=== PATIENT | male | born 1955 | race Caucasian/White ===

== ENCOUNTER 2023-02-13 10:34 | Inpatient (IN) ==
[2023-02-13] MEDS ORDERED: MILK OF MAGNESIA PO PRN (11:33)
[2023-02-13 11:41] VITALS: BMI 28.6
[2023-02-13] MEDS: ROXICODONE TAB 5 MG PO PRN (12:53)
[2023-02-13] MEDS: ELIQUIS PO SCH ×2 (13:52→21:03)
[2023-02-13] MEDS: TAB-A-VITE PO SCH (13:53)
[2023-02-13] MEDS: ZESTRIL TAB 10 MG PO SCH (13:53)
[2023-02-13] MEDS: NEURONTIN CAP 300 MG PO SCH ×2 (14:21→21:03)
[2023-02-13] MEDS: ROBAXIN PO SCH ×2 (14:21→21:04)
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
[2023-02-13] MEDS: COLACE CAP 100 MG PO SCH (21:03)
[2023-02-13] MEDS: ZOCOR TAB 20 MG PO SCH (21:03)
[2023-02-14] MEDS: NEURONTIN CAP 300 MG PO SCH ×3 (05:05→21:05)
[2023-02-14] MEDS: ROBAXIN PO SCH ×3 (05:05→21:05)
[2023-02-14 07:16] LABS: BASOPHILS % (AUTO) 0.2 % (0.2-1.0); EOSINOPHILS # (AUTO) 0.1 x10^3/uL (0.0-0.2); EOSINOPHILS % (AUTO) 1.6 % (0.9-2.9); HEMATOCRIT 31.1 % (42.0-54.0); HEMOGLOBIN 11.1 g/dL (13.5-18.0); LYMPHOCYTES # (AUTO) 0.7 X10^3/uL (1.3-2.9); LYMPHOCYTES % (AUTO) 11.6 % (21.0-51.0); MEAN CORPUSCULAR HEMOGLOBIN 32.7 pg (27.0-34.0); MEAN CORPUSCULAR HGB CONC 35.7 g/dL (33.0-35.0); MEAN CORPUSCULAR VOLUME 91.6 fL (80.0-100.0); MEAN PLATELET VOLUME 6.8 fL (7.4-11.0); MONOCYTES # (AUTO) 0.4 x10^3/uL (0.3-0.8); MONOCYTES % (AUTO) 7.9 % (0.0-13.0); NEUTROPHILS # (AUTO) 4.4 x10^3/uL (2.2-4.8); NEUTROPHILS % (AUTO) 78.7 % (42.0-75.0); PLATELET COUNT 165 X10^3/uL (150.0-450.0); RED CELL DISTRIBUTION WIDTH 12.6 % (11.6-16.5); WHITE BLOOD COUNT 5.6 X10^3/uL (3.6-10.0)
[2023-02-14 07:26] LABS: ALANINE AMINOTRANSFERASE 29 Units/L (12-78); ALBUMIN 2.8 g/dL (3.4-5.0); ALKALINE PHOSPHATASE 70 Units/L (46-116); ASPARTATE AMINO TRANSFERASE 29 Units/L (15-37); BLOOD UREA NITROGEN 20 mg/dL (7-18); CALCIUM 8.3 mg/dL (8.5-10.1); CARBON DIOXIDE 29.1 mmol/L (21-32); CHLORIDE 103 mmol/L (98-107); COR CA(FOR HYPOALB) 9.3 mg/dL (8.5-10.1); CREATININE 0.83 mg/dL (0.70-1.30); GLUCOSE 100 mg/dL (65-99); POTASSIUM 3.6 mmol/L (3.5-5.1); SODIUM 138 mmol/L (136-145); TOTAL PROTEIN 6.2 g/dL (6.4-8.2); eGFR NON BLACK RACES > 60 (>60)
[2023-02-14] MEDS: TAB-A-VITE PO SCH (09:25)
[2023-02-14] MEDS: ELIQUIS PO SCH ×2 (09:25→21:05)
[2023-02-14] MEDS: ZESTRIL TAB 10 MG PO SCH (09:25)
[2023-02-14] MEDS: ROXICODONE TAB 5 MG PO PRN (15:16)
[2023-02-14] MEDS ORDERED: CONSULT PHARMACY - POTASSIUM & MAGNESIUM XX SCH (21:00)
[2023-02-14] MEDS ORDERED: K-DUR TAB 20 MEQ PO ONE (21:00)
[2023-02-14] MEDS: COLACE CAP 100 MG PO SCH (21:06)
[2023-02-14] MEDS: ZOCOR TAB 20 MG PO SCH (21:06)
[2023-02-14] MEDS: MAG-OX TAB PO SCH ×2 (21:58→23:30)
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
[2023-02-15] MEDS: NEURONTIN CAP 300 MG PO SCH ×3 (05:25→21:32)
[2023-02-15] MEDS: ROBAXIN PO SCH ×3 (05:26→21:34)
[2023-02-15 06:27] LABS: POTASSIUM 3.8 mmol/L (3.5-5.1)
[2023-02-15] MEDS ORDERED: CONSULT PHARMACY - POTASSIUM & MAGNESIUM XX SCH (07:00)
[2023-02-15] MEDS ORDERED: K-DUR TAB 20 MEQ PO SCH (09:00)
[2023-02-15] MEDS: ELIQUIS PO SCH ×2 (09:01→21:32)
[2023-02-15] MEDS: ZESTRIL TAB 10 MG PO SCH (09:01)
[2023-02-15] MEDS: TAB-A-VITE PO SCH (09:02)
[2023-02-15] MEDS: COLACE CAP 100 MG PO SCH (21:32)
[2023-02-15] MEDS: ZOCOR TAB 20 MG PO SCH (21:32)
[2023-02-16] MEDS: ROBAXIN PO SCH ×3 (05:22→21:30)
[2023-02-16] MEDS: NEURONTIN CAP 300 MG PO SCH ×3 (05:22→20:59)
[2023-02-16 06:17] LABS: BASOPHILS % (AUTO) 0.2 % (0.2-1.0); EOSINOPHILS # (AUTO) 0.1 x10^3/uL (0.0-0.2); EOSINOPHILS % (AUTO) 1.6 % (0.9-2.9); HEMATOCRIT 30.2 % (42.0-54.0); HEMOGLOBIN 10.8 g/dL (13.5-18.0); LYMPHOCYTES # (AUTO) 0.6 X10^3/uL (1.3-2.9); LYMPHOCYTES % (AUTO) 9.4 % (21.0-51.0); MEAN CORPUSCULAR HEMOGLOBIN 32.7 pg (27.0-34.0); MEAN CORPUSCULAR HGB CONC 35.7 g/dL (33.0-35.0); MEAN CORPUSCULAR VOLUME 91.5 fL (80.0-100.0); MEAN PLATELET VOLUME 6.6 fL (7.4-11.0); MONOCYTES # (AUTO) 0.4 x10^3/uL (0.3-0.8); MONOCYTES % (AUTO) 6.6 % (0.0-13.0); NEUTROPHILS # (AUTO) 5.5 x10^3/uL (2.2-4.8); NEUTROPHILS % (AUTO) 82.2 % (42.0-75.0); PLATELET COUNT 216 X10^3/uL (150.0-450.0); RED CELL DISTRIBUTION WIDTH 12.6 % (11.6-16.5); WHITE BLOOD COUNT 6.7 X10^3/uL (3.6-10.0)
[2023-02-16 06:29] LABS: ALANINE AMINOTRANSFERASE 37 Units/L (12-78); ALBUMIN 2.5 g/dL (3.4-5.0); ALKALINE PHOSPHATASE 68 Units/L (46-116); ASPARTATE AMINO TRANSFERASE 22 Units/L (15-37); BLOOD UREA NITROGEN 21 mg/dL (7-18); CALCIUM 8.2 mg/dL (8.5-10.1); CARBON DIOXIDE 26.1 mmol/L (21-32); CHLORIDE 103 mmol/L (98-107); COR CA(FOR HYPOALB) 9.4 mg/dL (8.5-10.1); COR NA(FOR HYPERGLY) 137 mmol/L (136-145); CREATININE 0.93 mg/dL (0.70-1.30); GLUCOSE 146 mg/dL (65-99); POTASSIUM 3.7 mmol/L (3.5-5.1); SODIUM 136 mmol/L (136-145); TOTAL PROTEIN 6.1 g/dL (6.4-8.2); eGFR NON BLACK RACES > 60 (>60)
[2023-02-16] MEDS ORDERED: CONSULT PHARMACY - POTASSIUM & MAGNESIUM XX SCH ×2 (07:00→10:00)
[2023-02-16] MEDS: K-DUR TAB 20 MEQ PO SCH ×2 (09:05→20:58)
[2023-02-16] MEDS: ELIQUIS PO SCH ×2 (09:05→20:57)
[2023-02-16] MEDS: ZESTRIL TAB 10 MG PO SCH (09:05)
[2023-02-16] MEDS: TAB-A-VITE PO SCH (09:05)
[2023-02-16] MEDS: ROXICODONE TAB 5 MG PO PRN (09:24)
[2023-02-16] MEDS: ULTRAM PO SCH ×2 (15:06→20:59)
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
[2023-02-16] MEDS: COLACE CAP 100 MG PO SCH (20:59)
[2023-02-16] MEDS: ZOCOR TAB 20 MG PO SCH (21:02)
[2023-02-17] MEDS: ULTRAM PO SCH ×4 (02:08→20:51)
[2023-02-17] MEDS: NEURONTIN CAP 300 MG PO SCH ×3 (05:20→21:00)
[2023-02-17] MEDS: ROBAXIN PO SCH ×3 (05:21→21:00)
[2023-02-17] MEDS: TAB-A-VITE PO SCH (08:53)
[2023-02-17] MEDS: K-DUR TAB 20 MEQ PO SCH ×2 (08:53→20:50)
[2023-02-17] MEDS: ELIQUIS PO SCH ×2 (08:53→20:50)
[2023-02-17] MEDS: ZESTRIL TAB 10 MG PO SCH (08:54)
[2023-02-17] MEDS: ROXICODONE TAB 5 MG PO PRN (13:28)
[2023-02-17] MEDS: COLACE CAP 100 MG PO SCH (20:50)
[2023-02-17] MEDS: ZOCOR TAB 20 MG PO SCH (20:51)
[2023-02-18] MEDS: ULTRAM PO SCH ×4 (05:13→21:08)
[2023-02-18] MEDS: ROBAXIN PO SCH ×3 (05:14→21:09)
[2023-02-18] MEDS: NEURONTIN CAP 300 MG PO SCH ×3 (05:14→21:08)
[2023-02-18 06:21] LABS: BASOPHILS % (AUTO) 0.6 % (0.2-1.0); EOSINOPHILS # (AUTO) 0.2 x10^3/uL (0.0-0.2); HEMOGLOBIN 10.9 g/dL (13.5-18.0); LYMPHOCYTES # (AUTO) 0.8 X10^3/uL (1.3-2.9); LYMPHOCYTES % (AUTO) 14.4 % (21.0-51.0); MEAN CORPUSCULAR HEMOGLOBIN 32.7 pg (27.0-34.0); MEAN CORPUSCULAR HGB CONC 35.3 g/dL (33.0-35.0); MEAN CORPUSCULAR VOLUME 92.4 fL (80.0-100.0); MEAN PLATELET VOLUME 6.9 fL (7.4-11.0); MONOCYTES # (AUTO) 0.4 x10^3/uL (0.3-0.8); MONOCYTES % (AUTO) 7.3 % (0.0-13.0); NEUTROPHILS # (AUTO) 4.2 x10^3/uL (2.2-4.8); NEUTROPHILS % (AUTO) 74.7 % (42.0-75.0); PLATELET COUNT 275 X10^3/uL (150.0-450.0); RED BLOOD COUNT 3.35 X10^6/uL (4.7-6.0); RED CELL DISTRIBUTION WIDTH 13.3 % (11.6-16.5); WHITE BLOOD COUNT 5.6 X10^3/uL (3.6-10.0)
[2023-02-18 06:35] LABS: ALANINE AMINOTRANSFERASE 35 Units/L (12-78); ALBUMIN 2.6 g/dL (3.4-5.0); ALKALINE PHOSPHATASE 86 Units/L (46-116); ASPARTATE AMINO TRANSFERASE 20 Units/L (15-37); BLOOD UREA NITROGEN 23 mg/dL (7-18); CALCIUM 8.4 mg/dL (8.5-10.1); CARBON DIOXIDE 29.8 mmol/L (21-32); CHLORIDE 102 mmol/L (98-107); COR CA(FOR HYPOALB) 9.5 mg/dL (8.5-10.1); CREATININE 0.88 mg/dL (0.70-1.30); GLUCOSE 95 mg/dL (65-99); POTASSIUM 4.3 mmol/L (3.5-5.1); SODIUM 136 mmol/L (136-145); TOTAL PROTEIN 6.3 g/dL (6.4-8.2); eGFR NON BLACK RACES > 60 (>60)
[2023-02-18] MEDS: ELIQUIS PO SCH ×2 (08:26→21:08)
[2023-02-18] MEDS: ZESTRIL TAB 10 MG PO SCH (08:27)
[2023-02-18] MEDS: TAB-A-VITE PO SCH (08:27)
[2023-02-18] MEDS: K-DUR TAB 20 MEQ PO SCH ×2 (08:27→21:08)
[2023-02-18] MEDS: ROXICODONE TAB 5 MG PO PRN (09:10)
[2023-02-18] MEDS: ZOCOR TAB 20 MG PO SCH (21:08)
[2023-02-18] MEDS: COLACE CAP 100 MG PO SCH (21:08)
[2023-02-19] MEDS: ULTRAM PO SCH ×4 (02:17→20:35)
[2023-02-19] MEDS: NEURONTIN CAP 300 MG PO SCH ×3 (05:03→21:33)
[2023-02-19] MEDS: ROBAXIN PO SCH ×3 (05:04→21:33)
[2023-02-19 06:19] LABS: BASOPHILS % (AUTO) 0.9 % (0.2-1.0); EOSINOPHILS # (AUTO) 0.2 x10^3/uL (0.0-0.2); EOSINOPHILS % (AUTO) 3.3 % (0.9-2.9); HEMATOCRIT 32.1 % (42.0-54.0); HEMOGLOBIN 11.3 g/dL (13.5-18.0); LYMPHOCYTES # (AUTO) 0.7 X10^3/uL (1.3-2.9); LYMPHOCYTES % (AUTO) 15.9 % (21.0-51.0); MEAN CORPUSCULAR HEMOGLOBIN 32.3 pg (27.0-34.0); MEAN CORPUSCULAR HGB CONC 35.1 g/dL (33.0-35.0); MEAN PLATELET VOLUME 6.8 fL (7.4-11.0); MONOCYTES # (AUTO) 0.4 x10^3/uL (0.3-0.8); MONOCYTES % (AUTO) 8.2 % (0.0-13.0); NEUTROPHILS # (AUTO) 3.4 x10^3/uL (2.2-4.8); NEUTROPHILS % (AUTO) 71.7 % (42.0-75.0); PLATELET COUNT 349 X10^3/uL (150.0-450.0); RED BLOOD COUNT 3.49 X10^6/uL (4.7-6.0); RED CELL DISTRIBUTION WIDTH 12.9 % (11.6-16.5); WHITE BLOOD COUNT 4.7 X10^3/uL (3.6-10.0)
[2023-02-19 06:48] LABS: ALANINE AMINOTRANSFERASE 35 Units/L (12-78); ALBUMIN 2.7 g/dL (3.4-5.0); ALKALINE PHOSPHATASE 103 Units/L (46-116); ASPARTATE AMINO TRANSFERASE 19 Units/L (15-37); BLOOD UREA NITROGEN 22 mg/dL (7-18); CALCIUM 8.5 mg/dL (8.5-10.1); CARBON DIOXIDE 28.5 mmol/L (21-32); CHLORIDE 98 mmol/L (98-107); COR CA(FOR HYPOALB) 9.5 mg/dL (8.5-10.1); CREATININE 0.89 mg/dL (0.70-1.30); GLUCOSE 92 mg/dL (65-99); SODIUM 133 mmol/L (136-145); TOTAL PROTEIN 6.7 g/dL (6.4-8.2); eGFR NON BLACK RACES > 60 (>60)
[2023-02-19] MEDS: ELIQUIS PO SCH ×2 (08:46→20:34)
[2023-02-19] MEDS: ZESTRIL TAB 10 MG PO SCH (08:47)
[2023-02-19] MEDS: K-DUR TAB 20 MEQ PO SCH ×2 (08:48→20:34)
[2023-02-19] MEDS: TAB-A-VITE PO SCH (08:49)
[2023-02-19] MEDS: ROXICODONE TAB 5 MG PO PRN (09:40)
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
[2023-02-19] MEDS: COLACE CAP 100 MG PO SCH (20:34)
[2023-02-19] MEDS: ZOCOR TAB 20 MG PO SCH (20:34)
[2023-02-20] MEDS: ULTRAM PO SCH ×4 (03:03→20:27)
[2023-02-20] MEDS: ROBAXIN PO SCH ×3 (05:30→21:25)
[2023-02-20] MEDS: NEURONTIN CAP 300 MG PO SCH ×3 (05:30→21:25)
[2023-02-20 06:29] LABS: BASOPHILS % (AUTO) 0.7 % (0.2-1.0); EOSINOPHILS # (AUTO) 0.2 x10^3/uL (0.0-0.2); EOSINOPHILS % (AUTO) 4.5 % (0.9-2.9); HEMATOCRIT 31.5 % (42.0-54.0); HEMOGLOBIN 11.3 g/dL (13.5-18.0); LYMPHOCYTES # (AUTO) 0.6 X10^3/uL (1.3-2.9); LYMPHOCYTES % (AUTO) 14.9 % (21.0-51.0); MEAN CORPUSCULAR HEMOGLOBIN 32.7 pg (27.0-34.0); MEAN CORPUSCULAR HGB CONC 35.8 g/dL (33.0-35.0); MEAN CORPUSCULAR VOLUME 91.2 fL (80.0-100.0); MONOCYTES # (AUTO) 0.4 x10^3/uL (0.3-0.8); NEUTROPHILS # (AUTO) 2.8 x10^3/uL (2.2-4.8); NEUTROPHILS % (AUTO) 69.9 % (42.0-75.0); PLATELET COUNT 372 X10^3/uL (150.0-450.0); RED BLOOD COUNT 3.46 X10^6/uL (4.7-6.0); WHITE BLOOD COUNT 3.9 X10^3/uL (3.6-10.0)
[2023-02-20 06:44] LABS: ALANINE AMINOTRANSFERASE 29 Units/L (12-78); ALBUMIN 2.7 g/dL (3.4-5.0); ALKALINE PHOSPHATASE 117 Units/L (46-116); ASPARTATE AMINO TRANSFERASE 19 Units/L (15-37); BLOOD UREA NITROGEN 21 mg/dL (7-18); CALCIUM 8.6 mg/dL (8.5-10.1); CARBON DIOXIDE 29.8 mmol/L (21-32); CHLORIDE 98 mmol/L (98-107); COR CA(FOR HYPOALB) 9.6 mg/dL (8.5-10.1); CREATININE 0.88 mg/dL (0.70-1.30); GLUCOSE 90 mg/dL (65-99); POTASSIUM 4.3 mmol/L (3.5-5.1); SODIUM 133 mmol/L (136-145); TOTAL PROTEIN 6.7 g/dL (6.4-8.2); eGFR NON BLACK RACES > 60 (>60)
[2023-02-20] MEDS: ELIQUIS PO SCH ×2 (09:29→20:26)
[2023-02-20] MEDS: ZESTRIL TAB 10 MG PO SCH (09:30)
[2023-02-20] MEDS: K-DUR TAB 20 MEQ PO SCH ×2 (09:30→20:26)
[2023-02-20] MEDS: ROXICODONE TAB 5 MG PO PRN (09:31)
[2023-02-20] MEDS: TAB-A-VITE PO SCH (09:31)
[2023-02-20] MEDS: COLACE CAP 100 MG PO SCH (20:26)
[2023-02-20] MEDS: ZOCOR TAB 20 MG PO SCH (20:27)
[2023-02-21] MEDS: ULTRAM PO SCH ×4 (03:06→20:11)
[2023-02-21] MEDS: ROBAXIN PO SCH ×3 (05:37→21:02)
[2023-02-21] MEDS: NEURONTIN CAP 300 MG PO SCH ×3 (05:37→21:02)
[2023-02-21] MEDS: ELIQUIS PO SCH ×2 (08:37→20:09)
[2023-02-21] MEDS: ZESTRIL TAB 10 MG PO SCH (08:37)
[2023-02-21] MEDS: TAB-A-VITE PO SCH (08:37)
[2023-02-21] MEDS: ROXICODONE TAB 5 MG PO PRN (10:08)
[2023-02-21] MEDS: COLACE CAP 100 MG PO SCH (20:09)
[2023-02-21] MEDS: ZOCOR TAB 20 MG PO SCH (20:09)
[2023-02-21] MEDS: K-DUR TAB 20 MEQ PO SCH (20:09)
[2023-02-22] MEDS: ULTRAM PO SCH ×4 (02:10→20:08)
[2023-02-22] MEDS: ROBAXIN PO SCH ×3 (05:27→21:08)
[2023-02-22] MEDS: NEURONTIN CAP 300 MG PO SCH ×3 (05:27→21:08)
[2023-02-22] MEDS: TAB-A-VITE PO SCH (08:39)
[2023-02-22] MEDS: ZESTRIL TAB 10 MG PO SCH (08:39)
[2023-02-22] MEDS: ELIQUIS PO SCH ×2 (08:39→20:08)
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
[2023-02-22] MEDS: ZOCOR TAB 20 MG PO SCH (20:07)
[2023-02-22] MEDS: COLACE CAP 100 MG PO SCH (20:07)
[2023-02-22] MEDS: K-DUR TAB 20 MEQ PO SCH (20:09)
[2023-02-23] MEDS: ULTRAM PO SCH ×4 (03:15→20:10)
[2023-02-23] MEDS: ROBAXIN PO SCH (05:05)
[2023-02-23] MEDS: NEURONTIN CAP 300 MG PO SCH ×3 (05:05→21:28)
[2023-02-23 05:12] LABS: BASOPHILS % (AUTO) 0.8 % (0.2-1.0); EOSINOPHILS # (AUTO) 0.2 x10^3/uL (0.0-0.2); EOSINOPHILS % (AUTO) 4.7 % (0.9-2.9); HEMATOCRIT 32.7 % (42.0-54.0); HEMOGLOBIN 11.3 g/dL (13.5-18.0); LYMPHOCYTES # (AUTO) 1.1 X10^3/uL (1.3-2.9); LYMPHOCYTES % (AUTO) 28.5 % (21.0-51.0); MEAN CORPUSCULAR HEMOGLOBIN 31.7 pg (27.0-34.0); MEAN CORPUSCULAR HGB CONC 34.6 g/dL (33.0-35.0); MEAN CORPUSCULAR VOLUME 91.6 fL (80.0-100.0); MEAN PLATELET VOLUME 6.4 fL (7.4-11.0); MONOCYTES # (AUTO) 0.4 x10^3/uL (0.3-0.8); MONOCYTES % (AUTO) 9.3 % (0.0-13.0); NEUTROPHILS # (AUTO) 2.3 x10^3/uL (2.2-4.8); NEUTROPHILS % (AUTO) 56.7 % (42.0-75.0); PLATELET COUNT 467 X10^3/uL (150.0-450.0); RED BLOOD COUNT 3.57 X10^6/uL (4.7-6.0); RED CELL DISTRIBUTION WIDTH 13.1 % (11.6-16.5)
[2023-02-23 05:27] LABS: ALANINE AMINOTRANSFERASE 26 Units/L (12-78); ALBUMIN 2.7 g/dL (3.4-5.0); ALKALINE PHOSPHATASE 163 Units/L (46-116); ASPARTATE AMINO TRANSFERASE 15 Units/L (15-37); BLOOD UREA NITROGEN 22 mg/dL (7-18); CALCIUM 8.6 mg/dL (8.5-10.1); CARBON DIOXIDE 30.4 mmol/L (21-32); CHLORIDE 100 mmol/L (98-107); COR CA(FOR HYPOALB) 9.6 mg/dL (8.5-10.1); CREATININE 1.04 mg/dL (0.70-1.30); GLUCOSE 86 mg/dL (65-99); POTASSIUM 4.5 mmol/L (3.5-5.1); SODIUM 138 mmol/L (136-145); TOTAL PROTEIN 6.6 g/dL (6.4-8.2); eGFR NON BLACK RACES > 60 (>60)
[2023-02-23] MEDS: ELIQUIS PO SCH ×2 (09:06→20:09)
[2023-02-23] MEDS: ROXICODONE TAB 5 MG PO PRN (09:06)
[2023-02-23] MEDS: TAB-A-VITE PO SCH (09:07)
[2023-02-23] MEDS: ZESTRIL TAB 10 MG PO SCH (09:07)
[2023-02-23] MEDS: COLACE CAP 100 MG PO SCH (20:09)
[2023-02-23] MEDS: ZOCOR TAB 20 MG PO SCH (20:09)
[2023-02-23] MEDS: K-DUR TAB 20 MEQ PO SCH (20:09)
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
[2023-02-24] MEDS: ULTRAM PO SCH ×4 (02:41→20:15)
[2023-02-24] MEDS: NEURONTIN CAP 300 MG PO SCH ×3 (05:16→21:54)
[2023-02-24] MEDS: ZESTRIL TAB 10 MG PO SCH (08:38)
[2023-02-24] MEDS: TAB-A-VITE PO SCH (08:39)
[2023-02-24] MEDS: ELIQUIS PO SCH ×2 (08:39→20:16)
[2023-02-24] MEDS: ROXICODONE TAB 5 MG PO PRN (09:23)
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
[2023-02-24] MEDS: K-DUR TAB 20 MEQ PO SCH (20:15)
[2023-02-24] MEDS: COLACE CAP 100 MG PO SCH (20:15)
[2023-02-24] MEDS: ZOCOR TAB 20 MG PO SCH (20:16)
[2023-02-25] MEDS: ULTRAM PO SCH ×4 (02:07→21:16)
[2023-02-25] MEDS: NEURONTIN CAP 300 MG PO SCH ×3 (05:21→21:10)
[2023-02-25] MEDS: TAB-A-VITE PO SCH (08:33)
[2023-02-25] MEDS: ZESTRIL TAB 10 MG PO SCH (08:34)
[2023-02-25] MEDS: ELIQUIS PO SCH ×2 (08:34→21:14)
[2023-02-25] MEDS: ROXICODONE TAB 5 MG PO PRN (08:39)
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
[2023-02-25] MEDS: COLACE CAP 100 MG PO SCH (21:14)
[2023-02-25] MEDS: K-DUR TAB 20 MEQ PO SCH (21:15)
[2023-02-25] MEDS: ZOCOR TAB 20 MG PO SCH (21:17)
[2023-02-26] MEDS: ULTRAM PO SCH ×4 (02:45→21:17)
[2023-02-26] MEDS: NEURONTIN CAP 300 MG PO SCH ×3 (06:02→21:17)
[2023-02-26] MEDS: ZESTRIL TAB 10 MG PO SCH (09:04)
[2023-02-26] MEDS: ELIQUIS PO SCH ×2 (09:04→21:17)
[2023-02-26] MEDS: TAB-A-VITE PO SCH (09:04)
[2023-02-26] MEDS: ROXICODONE TAB 5 MG PO PRN (09:49)
--- NOTE | 2023-02-26 15:04 | DR.CONSULT ---
CONSULT Consultation for Day of: Date: 02/24/23 Chief Complaint Chief Complaint: Left shoulder pain Allergies Allergies Allergy/AdvReac Type Severity Reaction Status Date / Time No Known Allergies Allergy Verified 02/13/23 11:51 Medications Home Medications: No Known Allergies Allergy (Verified 02/13/23 11:51) CONTINUE taking the following medications lisinopril 10 mg tablet 10 mg PO QDAY 02/13/23 [History] simvastatin 20 mg tablet 20 mg PO QPM 02/13/23 [History] Physical Exam Vital Signs: Vital Signs Temperature 98.0 F Pulse Rate [Apical] 91 Respiratory Rate 20 Respiratory Rate 20 Respiratory Rate 20 Respiratory Rate 20 Respiratory Rate 20 Respiratory Rate 20 Blood Pressure [Right Arm] 131/69 O2 Sat by Pulse Oximetry 95 Plan (1) Pelvis fracture: Status: Acute (2) Hip fracture, right: Status: Acute (3) Fracture of left clavicle: Status: Acute (4) Hypertension: Status: Acute (5) Hyperlipidemia: Status: Acute
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
[2023-02-26] MEDS: K-DUR TAB 20 MEQ PO SCH (21:17)
[2023-02-26] MEDS: COLACE CAP 100 MG PO SCH (21:17)
[2023-02-26] MEDS: ZOCOR TAB 20 MG PO SCH (21:17)
[2023-02-27] MEDS: ULTRAM PO SCH ×4 (04:00→20:31)
[2023-02-27] MEDS: NEURONTIN CAP 300 MG PO SCH ×3 (05:18→21:32)
[2023-02-27] MEDS: TAB-A-VITE PO SCH (08:07)
[2023-02-27] MEDS: ELIQUIS PO SCH ×2 (08:07→20:31)
[2023-02-27] MEDS: ZESTRIL TAB 10 MG PO SCH (08:07)
[2023-02-27] MEDS: ROXICODONE TAB 5 MG PO PRN (09:47)
[2023-02-27] MEDS: ZOCOR TAB 20 MG PO SCH (20:31)
[2023-02-27] MEDS: COLACE CAP 100 MG PO SCH (20:31)
[2023-02-27] MEDS: K-DUR TAB 20 MEQ PO SCH (20:31)
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
[2023-02-28] MEDS: ULTRAM PO SCH ×4 (03:16→20:11)
[2023-02-28] MEDS: NEURONTIN CAP 300 MG PO SCH ×3 (05:44→21:05)
[2023-02-28] MEDS: TAB-A-VITE PO SCH (08:31)
[2023-02-28] MEDS: ZESTRIL TAB 10 MG PO SCH (08:31)
[2023-02-28] MEDS: ELIQUIS PO SCH ×2 (08:31→20:14)
[2023-02-28] MEDS ORDERED: PATIENT'S HOME MEDICATION PO SCH (09:00)
[2023-02-28] MEDS: ZOCOR TAB 20 MG PO SCH (20:11)
[2023-02-28] MEDS: COLACE CAP 100 MG PO SCH (20:11)
[2023-02-28] MEDS: K-DUR TAB 20 MEQ PO SCH (20:11)
[2023-03-01] MEDS: ULTRAM PO SCH ×4 (02:12→20:23)
[2023-03-01] MEDS: NEURONTIN CAP 300 MG PO SCH ×3 (05:16→21:18)
[2023-03-01] MEDS: ELIQUIS PO SCH ×2 (08:43→20:23)
[2023-03-01] MEDS: ZESTRIL TAB 10 MG PO SCH (08:43)
[2023-03-01] MEDS: TAB-A-VITE PO SCH (08:44)
[2023-03-01] MEDS: K-DUR TAB 20 MEQ PO SCH (20:22)
[2023-03-01] MEDS: COLACE CAP 100 MG PO SCH (20:23)
[2023-03-01] MEDS: ZOCOR TAB 20 MG PO SCH (20:23)
[2023-03-02] MEDS: ULTRAM PO SCH ×4 (03:03→21:10)
[2023-03-02 05:14] LABS: BASOPHILS % (AUTO) 1.1 % (0.2-1.0); EOSINOPHILS # (AUTO) 0.2 x10^3/uL (0.0-0.2); EOSINOPHILS % (AUTO) 4.7 % (0.9-2.9); HEMATOCRIT 35.2 % (42.0-54.0); HEMOGLOBIN 12.3 g/dL (13.5-18.0); LYMPHOCYTES # (AUTO) 1.3 X10^3/uL (1.3-2.9); LYMPHOCYTES % (AUTO) 40.5 % (21.0-51.0); MEAN CORPUSCULAR HGB CONC 34.9 g/dL (33.0-35.0); MEAN CORPUSCULAR VOLUME 91.5 fL (80.0-100.0); MEAN PLATELET VOLUME 6.7 fL (7.4-11.0); MONOCYTES # (AUTO) 0.3 x10^3/uL (0.3-0.8); NEUTROPHILS # (AUTO) 1.4 x10^3/uL (2.2-4.8); NEUTROPHILS % (AUTO) 43.7 % (42.0-75.0); PLATELET COUNT 325 X10^3/uL (150.0-450.0); RED BLOOD COUNT 3.85 X10^6/uL (4.7-6.0); RED CELL DISTRIBUTION WIDTH 13.3 % (11.6-16.5); WHITE BLOOD COUNT 3.3 X10^3/uL (3.6-10.0)
[2023-03-02] MEDS: NEURONTIN CAP 300 MG PO SCH ×3 (05:15→21:10)
[2023-03-02 05:36] LABS: ALANINE AMINOTRANSFERASE 18 Units/L (12-78); ALBUMIN 2.7 g/dL (3.4-5.0); ALKALINE PHOSPHATASE 217 Units/L (46-116); ASPARTATE AMINO TRANSFERASE 13 Units/L (15-37); BLOOD UREA NITROGEN 21 mg/dL (7-18); CALCIUM 8.7 mg/dL (8.5-10.1); CARBON DIOXIDE 30.9 mmol/L (21-32); CHLORIDE 104 mmol/L (98-107); COR CA(FOR HYPOALB) 9.7 mg/dL (8.5-10.1); CREATININE 1.09 mg/dL (0.70-1.30); GLUCOSE 80 mg/dL (65-99); POTASSIUM 4.7 mmol/L (3.5-5.1); SODIUM 141 mmol/L (136-145); TOTAL PROTEIN 6.6 g/dL (6.4-8.2); eGFR NON BLACK RACES > 60 (>60)
[2023-03-02] MEDS: ZESTRIL TAB 10 MG PO SCH (08:53)
[2023-03-02] MEDS: ROXICODONE TAB 5 MG PO PRN (08:54)
[2023-03-02] MEDS: TAB-A-VITE PO SCH (08:54)
[2023-03-02] MEDS: ELIQUIS PO SCH ×2 (08:54→21:10)
[2023-03-02] MEDS: COLACE CAP 100 MG PO SCH (21:10)
[2023-03-02] MEDS: ZOCOR TAB 20 MG PO SCH (21:10)
[2023-03-02] MEDS: K-DUR TAB 20 MEQ PO SCH (21:10)
[2023-03-03] MEDS: ULTRAM PO SCH ×4 (03:25→20:30)
[2023-03-03 04:56] LABS: EOSINOPHILS # (AUTO) 0.1 x10^3/uL (0.0-0.2); EOSINOPHILS % (AUTO) 5.1 % (0.9-2.9); HEMATOCRIT 35.6 % (42.0-54.0); HEMOGLOBIN 12.3 g/dL (13.5-18.0); LYMPHOCYTES # (AUTO) 1.1 X10^3/uL (1.3-2.9); LYMPHOCYTES % (AUTO) 35.8 % (21.0-51.0); MEAN CORPUSCULAR HEMOGLOBIN 31.5 pg (27.0-34.0); MEAN CORPUSCULAR HGB CONC 34.4 g/dL (33.0-35.0); MEAN CORPUSCULAR VOLUME 91.6 fL (80.0-100.0); MEAN PLATELET VOLUME 6.8 fL (7.4-11.0); MONOCYTES # (AUTO) 0.3 x10^3/uL (0.3-0.8); MONOCYTES % (AUTO) 10.9 % (0.0-13.0); NEUTROPHILS # (AUTO) 1.4 x10^3/uL (2.2-4.8); NEUTROPHILS % (AUTO) 47.2 % (42.0-75.0); PLATELET COUNT 289 X10^3/uL (150.0-450.0); RED BLOOD COUNT 3.89 X10^6/uL (4.7-6.0); RED CELL DISTRIBUTION WIDTH 13.6 % (11.6-16.5); WHITE BLOOD COUNT 2.9 X10^3/uL (3.6-10.0)
[2023-03-03] MEDS: NEURONTIN CAP 300 MG PO SCH ×3 (05:56→21:13)
[2023-03-03 08:14] VITALS: O2SAT 97
[2023-03-03] MEDS: ELIQUIS PO SCH ×2 (09:00→20:27)
[2023-03-03] MEDS: ZESTRIL TAB 10 MG PO SCH (09:00)
[2023-03-03] MEDS: TAB-A-VITE PO SCH (09:00)
[2023-03-03] MEDS: ROXICODONE TAB 5 MG PO PRN (09:02)
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
[2023-03-03] MEDS: COLACE CAP 100 MG PO SCH (20:27)
[2023-03-03] MEDS: K-DUR TAB 20 MEQ PO SCH (21:12)
[2023-03-03] MEDS: ZOCOR TAB 20 MG PO SCH (21:12)
[2023-03-04] MEDS: ULTRAM PO SCH ×2 (02:00→08:11)
[2023-03-04] MEDS: NEURONTIN CAP 300 MG PO SCH (05:05)
[2023-03-04] MEDS: ZESTRIL TAB 10 MG PO SCH (08:10)
[2023-03-04] MEDS: ELIQUIS PO SCH (08:10)
[2023-03-04] MEDS: TAB-A-VITE PO SCH (08:11)
[2023-03-04 08:12] VITALS: RESP 15
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
[2023-03-04 09:04] VITALS: BP 123/80; PULSE 91; TEMP 98.6
== END 2023-03-04 09:00 | disposition home health service (06) | DRG 965 ==
LOC: MED/SURG 10:47
PROVIDERS: ADMIT Family Medicine; ATTEND Family Medicine
DX: S72.001A Fracture of unspecified part of neck of right femur, initial encounter for closed fracture; E78.5 Hyperlipidemia, unspecified; S42.002A Fracture of unspecified part of left clavicle, initial encounter for closed fracture; Z51.89 Encounter for other specified aftercare; Y92.9 Unspecified place or not applicable; V89.2XXA Person injured in unspecified motor-vehicle accident, traffic, initial encounter; S32.10XA Unspecified fracture of sacrum, initial encounter for closed fracture; I10 Essential (primary) hypertension